=== PATIENT | female | born 1945 ===

== ENCOUNTER 2018-07-06 08:57 | Emergency (ER) | payer OTHER ==
[~2018-07-06] VITALS: Ht 160 cm; Wt 77.1 kg
[2018-07-06] MEDS ORDERED: TOPROL XL100 M1 (09:53)
[2018-07-06] MEDS ORDERED: HYDROCHLOROTHIA25 MG (09:54)
[2018-07-06] MEDS ORDERED: LOSARTAN POTASS50 MG (09:55)
== END 2018-07-06 11:39 | disposition home or self-care (01) ==
LOC: ER 08:57
DX: H81.12 Benign paroxysmal vertigo, left ear (principal); H92.02 Otalgia, left ear

== ENCOUNTER 2019-03-01 17:41 | Emergency (ER) | payer OTHER ==
[~2019-03-01] VITALS: Ht 160 cm; Wt 76.2 kg
[~2019-03-01 17:41] MED LIST: HYDROCHLOROTHIA25 MG; LOSARTAN POTASS50 MG; TOPROL XL100 M1
== END 2019-03-01 21:34 | disposition home or self-care (01) ==
LOC: ER 17:41
DX: R05 Cough (principal)